=== PATIENT | female | born 1975 | race Hispanic/Latino ===

== ENCOUNTER 2017-07-29 12:10 | Inpatient (IN) | payer MEDICARE, MEDICAID, OTHER ==
[2017-07-29 12:22] VITALS: O2SAT 98
--- NOTE | 2017-07-29 12:42 | ED PDOC ---
Arrival/HPI - General Chief Complaint: Psychiatric Evaluation Time Seen by Provider: 07/29/17 12:32 - History of Present Illness Narrative History of Present Illness (Text): 42 y/o F sent from [facility] via transfer for admission to psych for suicidal ideation. Patient denies fever or dyspnea. Past Medical History - Infectious Disease Hx of Infectious Diseases: None - Reproductive Menopause: No - Cardiac Hx Hypertension: Yes - Gastrointestinal Hx Gastroesophageal Reflux: Yes - Psychiatric Hx Substance Use: No - Anesthesia Hx Anesthesia: Yes Hx Anesthesia Reactions: No Hx Malignant Hyperthermia: No Family/Social History Family/Social History: Unknown Family HX Smoking Status: Never Smoked Hx Alcohol Use: No Hx Substance Use: No Allergies/Home Meds Allergies/Adverse Reactions: Allergies No Known Allergies Allergy (Verified 07/29/17 12:26) Home Medications: Home Meds Medication Instructions Recorded Confirmed amLODIPine [Norvasc] 5 mg PO DAILY 07/29/17 07/29/17 Review of Systems - Physician Review All systems were reviewed & negative as marked: Yes - Review of Systems Constitutional: absent: Fevers Respiratory: absent: SOB Physical Exam - Physical Exam Narrative Physical Exam (Text): GEN: NAD Head: NC CV: Regular rate Resp: No accessory muscle use Neuro: Alert, no focal deficit Vital Signs Temp Pulse Resp BP Pulse Ox 07/29/17 12:17 98.8 F 86 19 137/90 98 Disposition/Present on Arrival - Present on Arrival Any Indicators Present on Arrival: No History of DVT/PE: No History of Uncontrolled Diabetes: No Urinary Catheter: No History of Decub. Ulcer: No History Surgical Site Infection Following: None - Disposition Have Diagnosis and Disposition been Completed?: Yes Diagnosis: Suicidal ideation Disposition: HOSPITALIZED Disposition Time: 12:41 Patient Plan: Admission Condition: FAIR
[2017-07-29 17:08] VITALS: BMI 46.7
[2017-07-29] MEDS ORDERED: Magnesium Hydroxide Susp 30 ml UD PO PRN (17:40)
[2017-07-30 07:50] LABS: GLUCOSE,FASTING 107 mg/dL (65-110); HDL CHOLESTEROL 39 mg/dL (29-60)
[2017-07-30 08:01] LABS: LDL CHOLESTEROL 116 mg/dL (0-129)
[2017-07-30] MEDS: Pantoprazole 40 mg EC Tab PO SCH (10:29)
[2017-07-30] MEDS: buPROPion 150 mg/24 Hours XL Tab PO SCH (10:29)
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
[2017-07-30] MEDS: Alum-Mag Hydrox-Simethicone Susp (30 mL) PO PRN ×2 (15:42→21:42)
--- NOTE | 2017-07-30 15:50 | CON ---
HISTORY OF PRESENT ILLNESS: I saw her on the Psychiatric Floor. She is resting comfortably in her room. She ate breakfast. She has lots of issues. She has suicidal ideation. She is not feeling well mentally. She is also having vaginitis. She wants medicines for that. Also she wants sexually transmitted disease workup. She is worried about that. PAST MEDICAL HISTORY: She has depression, hypertension, GERD. She is not feeling well mentally overall. No surgical history, she tells me. FAMILY HISTORY: Unknown. SOCIAL HISTORY: No smoker. No alcohol. No drugs. ALLERGIES: NO KNOWN DRUG ALLERGIES. MEDICATIONS: She is on Norvasc 5 mg for blood pressure. REVIEW OF SYSTEMS: No acute vision changes or hearing changes. No sore throat. No chest pain or palpitations. No coughing, no shortness of breath. No abdominal pain, nausea, vomiting, constipation, or diarrhea. She can move all 4 extremities with no problems. She is having a vaginosis rash. She is having fears of having sexually transmitted diseases. She wants to checkup. PHYSICAL EXAMINATION: VITAL SIGNS: Temperature 98.8, pulse 86, respiratory rate 19, blood pressure 137/90, and O2 saturation 98%. HEENT: Her head is atraumatic and normocephalic. Extraocular muscles intact. Pupils are equal, round, and reactive to light and accommodation. Throat is moist. NECK: Supple. HEART: Regular rate. LUNGS: Clear to auscultation. ABDOMEN: Soft and nontender. Positive bowel sounds. No guarding. No rebound. No CVA tenderness. EXTREMITIES: Have no edema. NEUROLOGIC: She is alert and oriented x3. GCS is 15. Cranial nerves II through XII grossly intact. She is talking well. May be a little bit depressed. Just not feeling well. SKIN: For the most part is intact. No apparent rashes or ulcers. She was sent here from [facility] for suicidal ideation. Now, she is very concerned about having a sexually transmitted disease. She has fasting blood sugar of 107, triglycerides 121, cholesterol 175, LDH 116. TSH is 1.02. I have ordered labs for tomorrow. ASSESSMENT: Human immunodeficiency virus, VDRL, Chlamydia, herpes. She is very concerned and I ordered some Monistat cream vaginally for her. She is here for suicidal ideation, depression, vaginitis, hypertension, gastroesophageal reflux disease. We will follow as per Psychiatry and medically order labs for tomorrow. Thank you very much for participating in her care. Prasanna Merida DO AIDEE
[2017-07-30] MEDS: Miconazole 2% Vaginal Cream(45 gm) VG SCH (22:34)
[2017-07-31 08:21] LABS: HEMOGLOBIN 12.4 g/dL (12.0-16.0); MEAN CELL VOLUME 81.5 fl (80.0-105.0); MEAN CORPUSCULAR HEMOGLOBIN 25.5 pg (25.0-35.0); MEAN CORPUSCULAR HGB CONC 31.3 g/dl (31.0-37.0); RBC 4.86 10^6/uL (3.5-6.1); RED CELL DISTRIBUTION WIDTH 14.7 % (11.5-14.5); WHITE BLOOD COUNT 7.8 10^3/ul (4.5-11.0)
[2017-07-31] MEDS: buPROPion 150 mg/24 Hours XL Tab PO SCH (08:26)
[2017-07-31] MEDS: Pantoprazole 40 mg EC Tab PO SCH (08:26)
[2017-07-31 08:30] LABS: ALB/GLOB RATIO 1.2 (1.1-1.8); ALBUMIN 4.1 g/dL (3.0-4.8); ALT/SGPT 30 U/L (7-56); AST/SGOT 22 U/L (14-36); BLOOD UREA NITROGEN 15 mg/dL (7-21); CALCIUM 9.6 mg/dL (8.4-10.5); GFR AFRICAN-AMERICAN > 60; GFR NON-AFRICAN AMERICAN > 60
--- NOTE | 2017-07-31 11:23 | PN ---
DATE: SUBJECTIVE: I saw her in the room this morning. She slept well. She is eating okay. She is feeling a little bit better. She is on Ambien, Lamictal, Maalox, Milk of Magnesia, Monistat vaginal cream, she tells me this is helping, Norvasc, Protonix, Prozac, Tylenol, and Wellbutrin. She is eating well, walking around well and starting to feel a little bit better. PHYSICAL EXAMINATION: VITAL SIGNS: She has 98.4 temp, 69 pulse, 118/58 blood pressure, and 17 respiratory rate. HEENT: Head is atraumatic normocephalic. Throat is moist. NECK: Supple. HEART: Regular rate. LUNGS: Clear to auscultation. ABDOMEN: Soft and obese. EXTREMITIES: No edema. LABORATORY DATA: She had lab test done, the white count is 7.8, hemoglobin is 12.4, hematocrit is 39.6, and platelets are 274,000. She has 139 sodium, potassium 4.8, BUN 15, creatinine 0.8, GFR greater than 60, sugar is 117, sugar is also 107, calcium is 9.6, total bilirubin is 0.5, AST is 22, ALT is 30, alkaline phosphatase is 62, total protein is 7.6, albumin is 4.1, globulin 3.5. Triglycerides are 121, cholesterol is 175, and TSH is 1.02. RPR is nonreactive. I am still waiting for more blood tests to come back. ASSESSMENT AND PLAN: We will continue with aggressive treatment and care. Psychiatric care. HIV is pending. Hopefully, she will do well. I encouraged her to take the medications, participate in groups, to eat, and to walk around and we will see what the rest of the lab has to say when they comes back. She is here for hypertension, vaginitis, depression, suicidal ideation, and gastroesophageal reflux disease. Prasanan Merida DO
[2017-07-31] MEDS: Alum-Mag Hydrox-Simethicone Susp (30 mL) PO PRN (12:05)
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
[2017-07-31] MEDS: Miconazole 2% Vaginal Cream(45 gm) VG SCH (21:47)
[2017-08-01 07:20] VITALS: RESP 20
[2017-08-01] MEDS: Pantoprazole 40 mg EC Tab PO SCH ×2 (08:41→16:56)
[2017-08-01] MEDS: Alum-Mag Hydrox-Simethicone Susp (30 mL) PO PRN ×2 (10:25→21:27)
--- NOTE | 2017-08-01 13:20 | PN ---
DATE: SUBJECTIVE: I saw her resting comfortably in bed. She slept fairly well. She is having stomach upset. She is on the Protonix and I think we need to increase it. She is on Ambien; Lamictal; Maalox; milk of magnesia; vaginal cream Monistat; Norvasc; Protonix, we will increase to twice a day; Prozac; Topamax and Tylenol. She is eating. She is participating, but she is having more stomach upsets. PHYSICAL EXAMINATION: VITAL SIGNS: She has 97.5 temp, 73 pulse, 136/76 blood pressure, and 20 respiratory rate. HEENT: Head is atraumatic, normocephalic. HEART: Regular rate. LUNGS: Clear to auscultation. ABDOMEN: Soft and obese, nontender to palpation, may be little discomfort in the upper mid region. No guarding, no rebound. No CVA tenderness and positive bowel sounds. EXTREMITIES: No edema. She is a little bit obese. LABORATORY DATA: She has on 07/31/2017, white count 7.8, hemoglobin is 12.4, hematocrit is 39.6, and platelets 274. She has 139 sodium, potassium 4.8, BUN 15, creatinine 0.8, GFR greater than 60, sugar is 117, calcium is 9.6, hemoglobin A1c is 6.3. Total bilirubin is 0.5, AST is 22, ALT is 30, alkaline phosphatase is 62, total protein is 7.6, albumin 4.1, globulin 3.5. TSH is 1.02, cholesterol is 175. RPR is negative, still waiting for the HIV. This is a progress note on Pia Jacques who has hypertension, vaginitis, depression, suicidal ideation, and GERD. I will increase the Protonix. She is doing better. We will follow. Prasanna Merida DO
--- NOTE | 2017-08-01 15:41 | PCM.BM ---
<Randi Rahmanda - Last Filed: 08/01/17 15:37> Treatment Plan Problems - Problems identified on initial assessmt ALTERED THOUGHT PROCESS Date Initiated: 07/31/17 Time Initiated: 15:00 Assessment reference: NA Status: Active Priority: 1 INEFFECTIVE COPING SKILS Date Initiated: 07/31/17 Time Initiated: 15:00 Assessment reference: NA Status: Active Priority: 2 FEELING WORTHLESSNESS Date Initiated: 07/31/17 Time Initiated: 15:00 Assessment reference: NA Status: Active Priority: 3 Treatment assets and liabiliti Patient Assests: cooperative, educated, ADL independent, physically healthy, good past tx response, financial stabiity, cognitively intact Patient Liabilities: live alone, poor support system, relationship conflicts - Milieu Protocol Maintain good personal hygiene: daily Encourage regular showers, daily Remind patient to perform daily oral care, daily Assist patient to perform ADL's Maintain personal safety: every shift Educate patient to report safety concerns to staff, every shift Monitor environment for contraband/sharps Medication safety: Monitor for expected outcome, potential side effects: every shift, Assess barriers to learning: every shift, Assess readiness for medication education: every shift Milieu Narrative: Milieu/structure/supportive therapy Medical consult appreciated, see medical team note for more detailed info SW consultation for discharge plan and social issues Med management Wellbutrin was discontinued Lamictal 100 mg by mouth daily was continued for mood stabilization Topamax 25 mg twice a day for mood stabilization Prozac was started by Dr. Hensley, will continue for depression as well as anxiety as well as PTSD When necessary medications for insomnia Family involvement Follow up on labs Will monitor closely Pt was educated about risk/benefits and alternatives of medications, coping strategies (safety plan, suicide prevention), relapse prevention, importance of follow up with psychiatrist and therapist, stay away from drugs/alcohol/smoking Discharge/Continuing Care - Education Needs Education Needs: Patient Medication, Patient Diagnosis/Disease Process, Patient Coping Skills, Patient Placement options, Patient Community resources, Patient Activities of Daily Living, Patient Nutrition, Patient Uses of Medical Equipment , Patient Health Practices/Safety, Patient Personal Hygiene/Grooming, Patient Aftercare Safety Plan - Discharge Discharge Criteria: Tolerates medication w/o severe side effects, Free of Suicidal thoughts, Free of paranoid thoughts, Free of agitation, Normal sleep pattern, Ability to care for self, Reduction of target symptoms - Treatment Team Participation Patient/Family/SO Statement: Milieu/structure/supportive therapy Medical consult appreciated, see medical team note for more detailed info SW consultation for discharge plan and social issues Med management Wellbutrin was discontinued Lamictal 100 mg by mouth daily was continued for mood stabilization Topamax 25 mg twice a day for mood stabilization Prozac was started by Dr. Hensley, will continue for depression as well as anxiety as well as PTSD When necessary medications for insomnia Family involvement Follow up on labs Will monitor closely Pt was educated about risk/benefits and alternatives of medications, coping strategies (safety plan, suicide prevention), relapse prevention, importance of follow up with psychiatrist and therapist, stay away from drugs/alcohol/smoking <Yanni Ledesma - Last Filed: 08/01/17 15:58> - Diagnosis (1) Bipolar disorder Status: Acute Interventions: 08/01/17 15:58 Psychoeducation Psychopharmacology/adjustment of medications as needed/ monitoring possible side effects Monitor blood level of mood stabilizers Evaluate pt on daily basis Compliance with medications and follow up appointments Suicide and homicide risk assessment and prevention, coping strategies, safety plan Relapse prevention Reduction of symptoms Improve functional status Family involvement As outpatient: cognitive behavioral therapy (2) PTSD (post-traumatic stress disorder) Status: Acute Interventions: 08/01/17 15:59 Psychoeducation Psychopharmacology/adjustment of medications as needed/ monitoring possible side effects Evaluate pt on daily basis Discussion of importance of being compliant with medications and follow up appointments Suicide and homicide risk assessment and prevention, coping strategies, safety plan Reduction of symptoms Relaxation techniques and breathing exercises Improve functional status Family involvement Cognitive behavioral therapy as outpatient <Mari Torres - Last Filed: 08/01/17 16:09> Family Contact Family involvement: Famliy/SO not involved <Diana Andrew - Last Filed: 08/02/17 11:54>
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
[2017-08-01 20:21] LABS: PH,URINE 7.5 (4.7-8.0); URINE BILIRUBIN NEGATIVE (NEGATIVE); URINE BLOOD NEGATIVE (NEGATIVE); URINE GLUCOSE (UA) NEGATIVE (NEGATIVE); URINE LEUKOCYTE ESTERASE NEGATIVE Leu/uL (NEGATIVE); URINE NITRATE NEGATIVE (NEGATIVE); URINE PROTEIN NEGATIVE mg/dL (<30 mg/dL); URINE UROBILINOGEN 0.2 E.U./dL (<1 E.U./dL)
[2017-08-01 20:22] LABS: URINE APPEARANCE CLEAR (CLEAR); URINE COLOR YELLOW (YELLOW)
[2017-08-01] MEDS: Miconazole 2% Vaginal Cream(45 gm) VG SCH (21:28)
[2017-08-02] MEDS: Pantoprazole 40 mg EC Tab PO SCH ×2 (08:28→17:00)
--- NOTE | 2017-08-02 11:39 | PN ---
DATE: SUBJECTIVE: I saw her resting comfortably in bed. She is asking me for some antacids, I gave her some Tums, otherwise she is going much better and feeling better, less depressed. She is on Ambien, Lamictal, Maalox, milk of magnesia, Monistat vaginal cream, it is improving, Norvasc, Os-Wally, I added that for her tummy, Protonix she is already on, Prozac, Topamax and Tylenol. PHYSICAL EXAMINATION: VITAL SIGNS: 98 temp, 88 pulse, 127/71 blood pressure, and 20 respiratory rate. HEENT: Head is atraumatic, normocephalic. HEART: Regular rate. LUNGS: Clear to auscultation. ABDOMEN: Soft, nontender. Positive bowel sounds. Obese. EXTREMITIES: No edema. ASSESSMENT AND PLAN: We will continue with aggressive treatment and care psychologically. She is here for numerous issues, hypertension, vaginitis, depression, suicidal ideation, and gastroesophageal reflux disease. Hopefully, the Tums, calcium carbonate will help a little bit, and hopefully, she will improve. HIV was nonreactive. Herpes simplex is less than 0.09 which finally resulted. Prasanna Merida DO
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
[2017-08-02] MEDS ORDERED: FLUPHENAZINE 2.5 MG/5 ML PO SCH (22:00)
[2017-08-02] MEDS: Miconazole 2% Vaginal Cream(45 gm) VG SCH (23:03)
[2017-08-03] MEDS: Pantoprazole 40 mg EC Tab PO SCH ×2 (09:30→15:58)
--- NOTE | 2017-08-03 13:38 | PN ---
SUBJECTIVE: I saw her in her room. She is resting comfortably in bed. She has no complaints at this time. She slept well. She was here for hypertension, vaginitis, depression, suicidal ideation and GERD and she is improving. MEDICATIONS: She is on Ambien, Lamictal, Maalox, milk of magnesia, Monistat, Norvasc, Os-Wally, Prolixin, Protonix, Prozac and Tylenol. PHYSICAL EXAMINATION: VITAL SIGNS: 98.3 temp, 74 pulse, 120/74 blood pressure , 20 respiratory rate. HEENT: Head is atraumatic, normocephalic. HEART: Regular rate. LUNGS: Clear to auscultation. ABDOMEN: Soft, morbidly obese. EXTREMITIES: No edema. ASSESSMENT AND PLAN: Overall, I think she is starting to improve medically and psychologically. We will continue aggressive treatment and care medically and as per psychiatry. We will follow. Prasanna Merida DO
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
[2017-08-03] MEDS: Miconazole 2% Vaginal Cream(45 gm) VG SCH (21:14)
[2017-08-03] MEDS: Alum-Mag Hydrox-Simethicone Susp (30 mL) PO PRN (22:58)
[2017-08-04] MEDS: Pantoprazole 40 mg EC Tab PO SCH (07:41)
[2017-08-04 08:50] VITALS: BP 152/86
[2017-08-04 09:36] VITALS: PULSE 101; TEMP 98.4
[2017-08-04] MEDS: Alum-Mag Hydrox-Simethicone Susp (30 mL) PO PRN (10:17)
--- NOTE | 2017-08-04 14:23 | PN ---
DATE: SUBJECTIVE: I saw her in the psychiatric floor. She is resting comfortably in bed. She is doing better mentally and physically. MEDICATIONS: She is currently on Ambien, Lamictal, Maalox, milk of magnesia, Monistat, Norvasc, Os-Wally, Protonix, Prozac, Topamax, and Tylenol. I started her on Cipro today because the urine came back positive for UTI. I will put her on Cipro. PHYSICAL EXAMINATION: VITAL SIGNS: She has a 98.4 temperature, 98 pulse, 125/78 blood pressure, 20 respiratory rate, and 98% saturation on room air. HEENT: Head is atraumatic, normocephalic. HEART: Regular rate. LUNGS: Clear to auscultation. ABDOMEN: Soft, obese, and nontender. EXTREMITIES: No edema. She had multitude situations, hypertension, vaginitis, urinary tract infection now, depression, suicidal ideation, and gastroesophageal reflux disease. I understand that she will be going home. She will continue with her Cipro for 7 days, Monistat cream is [id number] and as per Psychiatry. Hopefully, she will continue to improve. She should followup her outpatient medical doctor. She is going to drink more water. Prasanna Merida DO
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
== END 2017-08-04 16:06 | disposition home or self-care (01) | DRG 885 ==
LOC: ED 12:10 → ERH 12:41 → PSYC 14:12
PROVIDERS: ADMIT Psychiatry & Neurology Psychiatry; ATTEND Psychiatry & Neurology Psychiatry
DX: F31.9 Bipolar disorder, unspecified (principal); R45.851 Suicidal ideations; Z68.42 Body mass index [BMI] 45.0-49.9, adult; N39.0 Urinary tract infection, site not specified; F43.10 Post-traumatic stress disorder, unspecified; K21.9 Gastro-esophageal reflux disease without esophagitis; I10 Essential (primary) hypertension; N76.0 Acute vaginitis; E66.01 Morbid (severe) obesity due to excess calories

== ENCOUNTER 2018-02-26 01:55 | Emergency (ER) | payer MEDICARE, OTHER ==
[2018-02-26 01:56] VITALS: BMI 46.7
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
[2018-02-26 07:33] VITALS: BP 108/79
[2018-02-26 16:23] VITALS: PULSE 70; RESP 18; TEMP 98; O2SAT 98
== END 2018-02-26 16:23 | disposition home or self-care (01) ==
LOC: ED 01:55
DX: J02.9 Acute pharyngitis, unspecified (principal); I10 Essential (primary) hypertension